=== PATIENT | female | born 1990 | race Hispanic/Latino ===

== ENCOUNTER 2024-09-03 00:04 | Emergency (ER) | payer BC ==
[2024-09-03] MEDS ORDERED: KETOROLAC 30 MG/ML INJ ONE (00:44)
[2024-09-03] MEDS ORDERED: LORazepam 2 MG/ML VIAL ONE (01:03)
[2024-09-03 01:13] LABS: Absolute Lymphocytes (CBC) 1.9 K/uL (0.7-4.9); Absolute Monocytes 0.5 K/uL (0.1-1.3); Absolute Neutrophil 3.7 K/uL (1.8-8.0); Basophils % 0.2 % (0-1.3); Eosinophils % 0.2 % (0-4.4); Hematocrit 40.5 % (36.0-45.0); Hemoglobin 13.9 g/dL (12.0-15.0); Lymphocytes % 31.1 % (15.3-44.8); MCH 34.5 pg (27.0-35.0); MCHC 34.3 g/dL (32.0-36.0); MCV 100.5 fL (80-100); MPV 8.4 fL (7.6-11.3); Monocytes % 8.2 % (3.3-12.3); Neutrophils % 60.3 % (41.7-73.7); Nucleated Red Blood Cells % 0.1 % (0-0); Platelets 252 thou/uL (152-406); RBC Red Blood Cell Count 4.03 M/uL (3.86-4.86)
[2024-09-03 01:19] LABS: Specific Gravity 1.022 (1.005-1.030); Urine Bacteria 20-50 /HPF (<20); Urine Bilirubin NEGATIVE (Negative); Urine Blood 2+ (Negative); Urine Clarity Turbid (Clear); Urine Color Light-Yellow (Yellow); Urine Culture Reflex Order NOT NEEDED; Urine Glucose NEGATIVE (Negative); Urine Ketones NEGATIVE (Negative); Urine Microscopic Reflex YN ORDER UMIC; Urine Mucus Slight /HPF (None Seen); Urine Nitrite NEGATIVE (Negative); Urine Protein NEGATIVE (Negative); Urine RBC 21-50 /HPF (None Seen); Urine Urobilinogen Normal (Normal); Urine WBC <5 /HPF (<5); Urine pH 6.5 (5.0-7.0)
[2024-09-03 01:25] LABS: Albumin 3.7 g/dL (3.4-5.0); Albumin/Globulin Ratio 0.9 (1.1-1.8); Anion Gap 8.5 mEq/L (5.0-15.0); Bilirubin Total 0.5 mg/dL (0.2-1.0); Globulin 4.1 g/dL (2.3-3.5); Potassium 3.5 mEq/L (3.5-5.1); Protein, Total 7.8 g/dL (6.4-8.2); Troponin High Sensitivity 4.6 pg/mL (<58.9)
--- NOTE | 2024-09-03 03:39 | RAD REPORT ---
EXAM DESCRIPTION: Abdomen Pelvis Wo Contrast CLINICAL HISTORY: FLANK PAIN COMPARISON: None Available. TECHNIQUE: CT of the abdomen and pelvis without IV contrast. Evaluation of the solid organs and vascu lature is suboptimal due to lack of IV contrast. This exam was performed according to our departmental dose-optimization program, which includes automated exposure control, adjustment of the mA and/or kV according to patient size and/or use of iterative reconstruction technique. FINDINGS: Prominent artifact from patient's upper extremities. Lung Bases: The visualized lung bases are clear. Abdomen: Liver: The liver has normal contour and density. No obvious mass within the limitations of noncontr ast technique. Gallbladder: No calcified gallstones. Spleen, Pancreas, and Adrenal Glands: The spleen, pancreas, and adrenal glands are unremarkable. Kidneys: The kidneys have normal size without suspicious mass within the limitations of noncontrast t echnique. No obstructing ureteral calculi. No hydronephrosis. Vasculature: The aorta and IVC have normal caliber and position. Stomach: The stomach and duodenum have normal course. Other: No free intraperitoneal air. No significant lymphadenopathy. Small fat-containing umbilica l hernia. Pelvis: Bladder: Urinary bladder is unremarkable. Bowel: No dilated loops of large or small bowel. No significant acute inflammatory changes. Appendix: Normal appendix. Pelvis: Right adnexal mass containing fat and layering intermediate density measures 4.7 x 3.8 x 4.7 cm consistent with a dermoid cyst. Trace free pelvic fluid. Bones: No destructive bone lesions identified. 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 IMPRESSION: 1. Right adnexal dermoid cyst measuring up to 4.7 cm. Trace free pelvic fluid. If patient has right -sided pain, ultrasound could be performed to exclude torsion. 2. No other acute abnormality on noncontrast CT of the abdomen and pelvis. Electronically signed by: Jade Lee MD 09/03/2024 03:18 AM [facility] Due to temporary technical issues with the PACS/[employer] reporting system, reports are being nikunj d by the in-house radiologist without review as a courtesy to ensure prompt reporting the interpreting radiologist is fully responsible for the content of the report. Transcribed Date/Time: 09/03/2024 3:39 AM
--- NOTE | 2024-09-03 04:41 | ER ---
Nurse's Notes [facility] Name: Swapna Gallardo Age: 34 yrs Sex: Female : 1990 Arrival Date: 09/03/2024 Time: 00:04 Bed 5 Private MD: Diagnosis: Anxiety, dermoid cyst right ovary Presentation: 09/03 00:28 Chief complaint: Patient states: I have a lower back pain for 4 hrs and causing me bm8 chills and tachycardia. the fast heart rate has been going for 2 hrs. Coronavirus screen: At this time, the client does not indicate any symptoms associated with coronavirus-19. Ebola Screen: Patient negative for fever greater than or equal to 101.5 degrees Fahrenheit, and additional compatible Ebola Virus Disease symptoms Patient denies exposure to infectious person. Patient denies travel to an Ebola-affected area in the 21 days before illness onset. No symptoms or risks identified at this time. Initial Sepsis Screen: Does the patient meet any 2 criteria? No. Patient's initial sepsis screen is negative. Does the patient have a suspected source of infection? No. Patient's initial sepsis screen is negative. Risk Assessment: Do you want to hurt yourself or someone else?. Onset of symptoms was September 02, 2024 at 20:00. 00:28 Method Of Arrival: Ambulatory bm8 00:28 Acuity: HUYEN 3 bm8 Triage Assessment: 00:30 General: Appears in no apparent distress. comfortable, Behavior is calm, cooperative, bm8 appropriate for age. Pain: Complains of pain in back Pain currently is 8 out of 10 on a pain scale. Quality of pain is described as crampy, sharp. EENT: No deficits noted. No signs and/or symptoms were reported regarding the EENT system. Neuro: No deficits noted. Level of Consciousness is awake, alert, obeys commands, Oriented to person, place, time, situation, Appropriate for age. Cardiovascular: Reports palpitations, Heart tones S1 S2 present Capillary refill < 3 seconds in bilateral fingers Patient's skin is warm and dry. Pulses are all present. Rhythm is sinus rhythm. Respiratory: Airway is patent Respiratory effort is even, unlabored, Respiratory pattern is regular, symmetrical, Breath sounds are clear bilaterally. GI: No signs and/or symptoms were reported involving the gastrointestinal system. : No signs and/or symptoms were reported regarding the genitourinary system. Derm: No signs and/or symptoms reported regarding the dermatologic system. Musculoskeletal: Circulation, motion, and sensation intact. Capillary refill < 3 seconds, in bilateral fingers. Range of motion: intact in all extremities, Reports pain in back Pain is 8 out of 10 on a pain scale. 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 - Infectious Disease History:: Denies. - Social history:: Smoking status: Patient denies any tobacco usage or history of. Screenin:26 [facility] ED Fall Risk Assessment (Adult) History of falling in the last 3 months, ha1 including since admission No falls in past 3 months (0 pts) Confusion or Disorientation No (0 pts) Intoxicated or Sedated No (0 pts) Impaired Gait No (0 pts) Mobility Assist Device Used No (0 pt) Altered Elimination No (0 pt) Score/Fall Risk Level 0 - 2 = Low Risk Oriented to surroundings, Maintained a safe environment, Educated pt \T\ family on fall prevention, incl call for assistance when getting out of bed, Hourly rounding (assess needs \T\ fall precautionary measures) done. Abuse screen: Denies threats or abuse. Denies injuries from another. Nutritional screening: No deficits noted. Tuberculosis screening: No symptoms or risk factors identified. Assessment: 00:15 General: Appears uncomfortable, Behavior is anxious. Pain: Complains of pain in abdomen ha1 Pain currently is 7 out of 10 on a pain scale. Quality of pain is described as aching. Neuro: Level of Consciousness is awake, alert, obeys commands, Oriented to person, place, time, situation. Cardiovascular: Patient's skin is warm and dry. Cardiovascular: Reports palpitations, Heart tones S1 S2 present. Respiratory: Airway is patent Respiratory effort is even, unlabored, Respiratory pattern is regular, symmetrical. GI: No signs and/or symptoms were reported involving the gastrointestinal system. Abdomen is round non-distended. : No signs and/or symptoms were reported regarding the genitourinary system. Derm: Skin is pink, warm \T\ dry. Musculoskeletal: Circulation, motion, and sensation intact. Range of motion: intact in all extremities. 01:23 Reassessment: Patient and/or family updated on plan of care and expected duration. Pain ha1 level reassessed. Patient is alert, oriented x 3, equal unlabored respirations, skin warm/dry/pink. 02:11 Reassessment: Patient appears in no apparent distress at this time. Patient and/or bm8 family updated on plan of care and expected duration. Pain level reassessed. Patient is alert, oriented x 3, equal unlabored respirations, skin warm/dry/pink. Patient states feeling better. 02:19 Reassessment: Patient and/or family updated on plan of care and expected duration. Pain ha1 level reassessed. Patient is alert, oriented x 3, equal unlabored respirations, skin warm/dry/pink. 03:09 Reassessment: Patient and/or family updated on plan of care and expected duration. Pain ha1 level reassessed. Patient is alert, oriented x 3, equal unlabored respirations, skin warm/dry/pink. 04:25 Reassessment: Patient and/or family updated on plan of care and expected duration. Pain ha1 level reassessed. Patient is alert, oriented x 3, equal unlabored respirations, skin warm/dry/pink. Patient denies pain at this time. Patient states feeling better. Patient states symptoms have improved. 05:13 Reassessment: Patient and/or family updated on plan of care and expected duration. Pain ha1 level reassessed. Patient is alert, oriented x 3, equal unlabored respirations, skin warm/dry/pink. Vital Signs: 00:28 BP 141 / 96; Pulse 99; Resp 18; Temp 99; Pulse Ox 100% ; Weight 87 kg; Height 5 ft. 7 bm8 in. ; Pain 8/; 01:23 BP 124 / 90; Pulse 84; Resp 17 S; Pulse Ox 100% on R/A; ha1 02:11 Pulse 102; Resp 18; Temp 99; Pulse Ox 100% ; Pain 3/10; bm8 03:09 BP 115 / 92; Pulse 73; Resp 17 S; Pulse Ox 99% on R/A; ha1 04:05 BP 124 / 88; Pulse 79; Resp 17 S; Pulse Ox 98% on R/A; ha1 05:13 BP 127 / 75; Pulse 74; Resp 17 S; Pulse Ox 99% on R/A; ha1 00:28 Body Mass Index 30.04 (87.00 kg, 170.18 cm) bm8 00:28 Pain Scale: Adult bm8 02:11 Pain Scale: Adult bm8 [place] Coma Score: 02:11 Eye Response: spontaneous(4). Motor Response: obeys commands(6). Verbal Response: bm8 oriented(5). Total: 15. ED Course: 00:10 Patient arrived in ED. gm2 00:13 Francia Cespedes MD is Attending Physician. sp3 00:15 Patient has correct armband on for positive identification. Bed in low position. Call ha1 light in reach. Side rails up X 1. 00:21 EKG done, by ED staff. vk 00:28 Dion Zeng, RN is Primary Nurse. bm8 00:30 Triage completed. bm8 00:30 Arm band placed on right wrist. bm8 01:00 Inserted saline lock: 20 gauge in right antecubital area, using aseptic technique. vk Blood collected. Flushed with 10 mL NS. 01:44 CT Abd/Pelvis - Without Contrast In Process Unspecified. EDMS 04:24 US Transvaginal Study (Probe) In Process Unspecified. EDMS 05:14 No provider procedures requiring assistance completed. IV discontinued, intact, ha1 bleeding controlled, No redness/swelling at site. Pressure dressing applied. 05:22 Provided Education on: FOLLOWING UP WITH OB . ha1 Administered Medications: 01:06 Drug: Ativan IVP 1 mg IVP once Route: IVP; Site: right antecubital; ha1 01:35 Follow up: Response: No adverse reaction; Anxiety decreased ha1 01:23 Drug: TORadol - Ketorolac IVP 15 mg IVP once Route: IVP; Site: right antecubital; ha1 01:45 Follow up: Response: No adverse reaction; Pain is decreased ha1 Medication: 01:27 VIS not applicable for this client. ha1 Outcome: 04:40 Discharge ordered by . sp3 05:14 Discharged to home ambulatory, with family, ha1 05:14 Condition: stable 05:14 Discharge instructions given to patient, Instructed on discharge instructions, follow up and referral plans. medication usage, Demonstrated understanding of instructions, follow-up care, medications, Prescriptions given X 05:22 Patient left the ED. ha1 Signatures: Dispatcher [employer] EDMS Francia Cespedes MD MD sp3 Stephanie Patterson RN RN ha1 Angelita Ashton 2 Loreto Germain Brad RN RN bm8
--- NOTE | 2024-09-03 04:41 | EDPHYS ---
Physician Documentation [facility] Name: Swapna Gallardo Age: 34 yrs Sex: Female : 1990 Arrival Date: 09/03/2024 Time: 00:04 Bed 5 Private MD: ED Physician Francia Cespedes HPI: 09/03 00:41 This 34 yrs old Female presents to ER via Ambulatory with complaints of Back sp3 Pain, Anxiety, Chest Tightness. 00:41 34-year-old female with no significant past medical history presents with flank pain sp3 and anxiety leading to chest tightness for 1 day. Main complaint is flank pain. She denies any fever but does have chills. She also denies any vomiting, diarrhea, intra-abdominal pain, dysuria, MEDICAL MANAGER symptoms, shortness of breath, known sick contacts, travel history, or any other signs or symptoms on ROS at this time.. 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 - Infectious Disease History:: Denies. - Social history:: Smoking status: Patient denies any tobacco usage or history of. ROS: 00:42 Constitutional: Negative for fever, chills, and weight loss, Eyes: Negative for injury, sp3 pain, redness, and discharge, Neck: Negative for injury, pain, and swelling, Abdomen/GI: Negative for abdominal pain, nausea, vomiting, diarrhea, and constipation, MS/Extremity: Negative for injury and deformity, Skin: Negative for injury, rash, and discoloration, Neuro: Negative for headache, weakness, numbness, tingling, and seizure, Psych: Negative for depression, anxiety, suicide ideation, homicidal ideation, and hallucinations, Allergy/Immunology: Negative for hives, rash, and allergies, Endocrine: Negative for neck swelling, polydipsia, polyuria, polyphagia, and marked weight changes, 00:42 All other systems are negative, Exam: 00:42 Constitutional: This is a well developed, well nourished patient who is awake, alert, sp3 and in no acute distress. Head/Face: Normocephalic, atraumatic. Eyes: Pupils equal round and reactive to light, extra-ocular motions intact. Lids and lashes normal. Conjunctiva and sclera are non-icteric and not injected. Cornea within normal limits. Periorbital areas with no swelling, redness, or edema. ENT: Nares patent. No nasal discharge, no septal abnormalities noted. External auditory canals are clear. Oropharynx with no redness, swelling, or masses, exudates, or evidence of obstruction, uvula midline. Mucous membranes moist. Neck: Trachea midline, no thyromegaly or masses palpated, and no cervical lymphadenopathy. Supple, full range of motion without nuchal rigidity, or vertebral point tenderness. No Meningismus. Chest/axilla: Normal chest wall appearance and motion. Nontender with no deformity. No lesions are appreciated. Cardiovascular: Regular rate and rhythm with a normal S1 and S2. No gallops, murmurs, or rubs. Normal PMI, no JVD. No pulse deficits. Respiratory: Lungs have equal breath sounds bilaterally, clear to auscultation and percussion. No rales, rhonchi or wheezes noted. No increased work of breathing, no retractions or nasal flaring. Abdomen/GI: Soft, non-tender, with normal bowel sounds. No distension or tympany. No guarding or rebound. No evidence of tenderness throughout. Skin: Warm, dry with normal turgor. Normal color with no rashes, no lesions, and no evidence of cellulitis. MS/ Extremity: Pulses equal, no cyanosis. Neurovascular intact. Full, normal range of motion. Neuro: Awake and alert, GCS 15, oriented to person, place, time, and situation. Cranial nerves II-XII grossly intact. Motor strength 5/5 in all extremities. Sensory grossly intact. Cerebellar exam normal. Normal gait. Psych: Awake, alert, with orientation to person, place and time. Behavior, mood, and affect are within normal limits. 00:42 Back: Right-sided CVA tenderness noted., 00:43 ECG was reviewed by the Attending Physician. EKG demonstrates normal sinus rhythm at 95 sp3 bpm with normal intervals, normal QRS, normal axis, nonspecific ST/T changes without evidence of acute ischemia. Vital Signs: 00:28 BP 141 / 96; Pulse 99; Resp 18; Temp 99; Pulse Ox 100% ; Weight 87 kg; Height 5 ft. 7 bm8 in. ; Pain 8/10; 01:23 BP 124 / 90; Pulse 84; Resp 17 S; Pulse Ox 100% on R/A; ha1 02:11 Pulse 102; Resp 18; Temp 99; Pulse Ox 100% ; Pain 3/10; bm8 03:09 BP 115 / 92; Pulse 73; Resp 17 S; Pulse Ox 99% on R/A; ha1 04:05 BP 124 / 88; Pulse 79; Resp 17 S; Pulse Ox 98% on R/A; ha1 05:13 BP 127 / 75; Pulse 74; Resp 17 S; Pulse Ox 99% on R/A; ha1 00:28 Body Mass Index 30.04 (87.00 kg, 170.18 cm) bm8 00:28 Pain Scale: Adult bm8 02:11 Pain Scale: Adult bm8 [place] Coma Score: 02:11 Eye Response: spontaneous(4). Motor Response: obeys commands(6). Verbal Response: bm8 oriented(5). Total: 15. MDM: 00:13 Medical Screening Exam initiated sp3 00:43 Data reviewed: vital signs, nurses notes, lab test result(s), EKG, radiologic studies. sp3 00:43 ED course: 34-year-old female with flank pain, chills and anxiety/palpitations. EKG is sp3 normal. Differential diagnosis includes UTI/pyelonephritis Bactrim, kidney stone, other intra-abdominal or retroperitoneal process, anxiety, among others. Workup will include EKG which is normal, UA, hCG, general labs and CT scan of the abdomen pelvis noncontrast. No pharmacological intervention indicated at this time. Disposition pending workup and patient course.. 04:40 ED course: CT demonstrates a 4.6 cm dermoid cyst. Ultrasound demonstrates positive sp3 flow. Patient will be safely discharged home at this time.. 09/03 00:39 Order name: CBC with Diff; Complete Time: : sp3 09/03 00:39 Order name: CMP; Complete Time: : sp3 09/03 00:39 Order name: Lipase; Complete Time: sp3 09/03 00:39 Order name: Urinalysis w/ reflexes; Complete Time: 01:32 sp3 09/03 00:39 Order name: Troponin High Sensitivity; Complete Time: 01:32 sp3 09/03 00:42 Order name: Test, Serum; Complete Time: 01:32 bm8 09/03 00:39 Order name: CT Abd/Pelvis - Without Contrast sp3 09/03 03:39 Order name: US Transvaginal Study (Probe) sp3 09/03 00:13 Order name: EKG; Complete Time: 00:14 sp3 09/03 00:13 Order name: EKG - Nurse/Tech; Complete Time: 00:21 sp3 09/03 00:39 Order name: IV Saline Lock; Complete Time: 01:00 sp3 09/03 00:39 Order name: Labs collected and sent; Complete Time: 01:00 sp3 Administered Medications: 01:06 Drug: Ativan IVP 1 mg IVP once Route: IVP; Site: right antecubital; ha1 01:35 Follow up: Response: No adverse reaction; Anxiety decreased ha1 01:23 Drug: TORadol - Ketorolac IVP 15 mg IVP once Route: IVP; Site: right antecubital; ha1 01:45 Follow up: Response: No adverse reaction; Pain is decreased ha1 Disposition Summary: 09/03/24 04:40 Discharge Ordered Notes: Location: Home sp3 Condition: Stable sp3 Diagnosis - Anxiety, dermoid cyst right ovary sp3 Followup: sp3 - With: Private Physician - When: Upon discharge from the Emergency Department - Reason: Recheck today's complaints Discharge Instructions: - Discharge Summary Sheet sp3 - Ovarian Cyst sp3 - Generalized Anxiety Disorder, Adult sp3 Forms: - Medication Reconciliation Form sp3 - Antibiotic Education sp3 - Prescription Opioid Use sp3 - Patient Portal Instructions sp3 - Leadership Thank You Letter sp3 Prescriptions: - Tramadol 50 mg Oral Tablet - take 1 tablet ORAL route every 8 hours as needed; 12 tablet; Refills: 0, sp3 Product Selection Permitted Signatures: Dispatcher [employer] Francia Card MD MD sp3 Stephanie Patterson, RN RN ha1 Dion Zeng, RN RN bm8 Corrections: (The following items were deleted from the chart) 00:40 00:40 CBC+H.LAB.BRZ ordered. EDMS EDMS 00:40 00:40 COMPREHENSIVE METABOLIC PANEL+C.LAB.BRZ ordered. EDMS EDMS 00:40 00:40 LIPASE+C.LAB.BRZ ordered. EDMS EDMS 00:40 00:40 Urinalysis+U.LAB.BRZ ordered. EDMS EDMS 00:40 00:40 Troponin High Sensitivity+C.LAB.BRZ ordered. EDMS EDMS 00:57 00:40 Test, Urine+UC.LAB.BRZ ordered. EDMS EDMS
--- NOTE | 2024-09-03 05:19 | RAD REPORT ---
EXAM DESCRIPTION: Transvaginal Study Probe CLINICAL HISTORY: 34 years Female, dermoid cyst on right ovary; assess for arterial flow COMPARISON: CT abdomen pelvis 09/03/2024 TECHNIQUE: Transvaginal images of the pelvis obtained. FINDINGS: Uterus: Retroverted, measuring 7.2 x 4.7 x 5.3 cm. No myometrial mass. Endometrium: Measures up to 0.7 cm in thickness, within normal limits. No internal vascularity on col or Doppler images. Right ovary: Enlarged, measuring 5.7 x 4.7 x 5.8 cm with heterogeneous echogenic mass measuring 4.9 x 2.6 x 4.2 cm, consistent with ovarian dermoid as seen on CT. Left ovary: Measures 2.1 x 3.9 x 1.7 cm. No suspicious sonographic abnormality. Adnexa: No additional abnormality. Free fluid: Small amount of free pelvic fluid. Duplex imaging: Blood flow demonstrated to both ovaries. IMPRESSION: 1. Right ovarian dermoid measuring up to 4.9 cm. Blood flow demonstrated to both ovaries. 2. Small amount of free pelvic fluid. Electronically signed by: Jade Lee MD 09/03/2024 05:15 AM [facility] Due to temporary technical issues with the PACS/[employer] reporting system, reports are being signed by the in-house radiologist without review as a courtesy to ensure prompt reporting the interpreting radiologist is fully responsible for the content of the report. Transcribed Date/Time: 09/03/2024 5:18 AM
[2024-09-03 05:27] VITALS: TEMP 99
[2024-09-03 05:35] VITALS: BP 127/75; O2SAT 99
--- NOTE | 2024-09-03 12:02 | EKG ---
Test Date: 2024-09-03 Test Time: 00:29:58 Stone Unloader: ANA MEASUREMENT RESULTS: Intervals: Rate: 95 CA: 152 QRSD: 78 QT: 348 QTc: 437 Hallock: P: 61 CA: 152 QRS: 22 T: 47 INTERPRETIVE STATEMENTS: Normal sinus rhythm Cannot rule out Anterior infarct, age undetermined Abnormal ECG No previous ECG available for comparison Electronically Signed On 09-03-24 12:01:31 SPANISH INSTRUCTOR by Enzo Vasquez
== END 2024-09-03 05:22 | disposition home or self-care (01) ==
LOC: ER 00:04
DX: D27.0 Benign neoplasm of right ovary (principal); F41.9 Anxiety disorder, unspecified
CPT/HCPCS: 36415; 74176; 76830; 80053; 81001; 83690; 84484; 84703; 85025; 93005; 96374; 96375; 99284